=== PATIENT | male | born 1990 | race African-American/Black ===

== ENCOUNTER 2022-02-28 01:24 | Emergency (ER) | payer MEDICAID ==
[~2022-02-28] VITALS: Ht 177.8 cm; Wt 117.0 kg
[2022-02-28] MEDS ORDERED: ERYT1OIN6 EACHEYE (02:54)
[2022-02-28] MEDS ORDERED: POLY15DR31 LEFTEYE (02:54)
[2022-02-28 03:12] VITALS: BP 127/78
== END 2022-02-28 03:00 | disposition home or self-care (01) ==
LOC: ER 01:24
DX: T15.92XA Foreign body on external eye, part unspecified, left eye, initial encounter (principal); J45.909 Unspecified asthma, uncomplicated; E78.5 Hyperlipidemia, unspecified; X58.XXXA Exposure to other specified factors, initial encounter; Y93.9 Activity, unspecified; Y92.9 Unspecified place or not applicable
CPT/HCPCS: 99283